=== PATIENT | female | born 1995 | race Caucasian/White ===

== ENCOUNTER 2023-01-28 22:27 | Emergency (ER) | payer OTHER, BC, SELFPAY ==
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
[2023-01-28 22:47] VITALS: BP 122/76; PULSE 83; RESP 18; TEMP 36.8; O2SAT 100
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
[2023-01-29 02:01] VITALS: BP 126/78; PULSE 79; O2SAT 99
== END 2023-01-29 02:02 | disposition home or self-care (01) ==
PROVIDERS: Emergency Provider Physician Assistant
DX: R07.81 Pleurodynia (principal); M79.661 Pain in right lower leg; V43.52XA Car driver injured in collision with other type car in traffic accident, initial encounter; Y92.410 Unspecified street and highway as the place of occurrence of the external cause
CPT/HCPCS: 71046; 73590; 99284